=== PATIENT | male | born 1985 | race African-American/Black ===

== ENCOUNTER 2023-12-28 21:31 | Emergency (ER) | payer MEDICAID, OTHER ==
[~2023-12-28] VITALS: Ht 185.4 cm; Wt 104.5 kg
[2023-12-29] MEDS: KETOROLAC TROMETH 60MG/2ML VIAL IM ONE (02:15)
[2023-12-29 02:30] VITALS: BP 112/76; PULSE 78; RESP 18; TEMP 98.8
[2023-12-29 02:31] VITALS: O2SAT 98
== END 2023-12-29 02:39 | disposition home or self-care (01) ==
LOC: ER 21:31
DX: M54.50 Low back pain, unspecified (principal); W11.XXXA Fall on and from ladder, initial encounter; Y93.89 Activity, other specified; Y92.89 Other specified places as the place of occurrence of the external cause; Y99.8 Other external cause status
CPT/HCPCS: 72131; 96372; 99285; J1885